=== PATIENT | male | born 1955 | race Caucasian/White ===

== ENCOUNTER 2017-09-02 21:48 | Emergency (ER) | payer OTHER ==
[~2017-09-02] VITALS: Ht 172.7 cm; Wt 63.9 kg
[~2017-09-02 21:48] MED LIST: AMLO-110 PO; ASPI81TA28 PO; LISI-461 PO; TIOTCAP INH
[2017-09-02 21:50] VITALS: Ht 172.7 cm; Wt 63.9 kg
[2017-09-02] MEDS ORDERED: SODIUM CHLORIDE 0.9% 1000ML 2,000 ML IV STA (22:02)
[2017-09-02] MEDS ORDERED: ALBUT/IPRATROP 3MG/0.5MG NEB 3 ML VIAL INH STA (22:02)
--- NOTE | 2017-09-02 22:02 | EMERGENCY ROOM VISIT NOTE ---
History Report prepared by Hilda: Benja Underwood Under the Supervision of: Dr. Cullen Grubbs M.D. First contact with patient: 21:55 Chief Complaint: SYNCOPE (NEAR SYNCOPE) Stated Complaint: LIGHTHEADED History of Present Illness The patient is a 61 year old male who presents to the Emergency Room with complaints of intermittent lightheadedness that began a couple of days ago. This has happened only once before in the past. He has a past medical history of COPD and smokes 1.5 packs of cigarettes every day. He also drinks 6-7 alcohol beverages every single day. He chose to come to the ER today because his lightheadedness had gotten worse this morning. His lightheadedness is only present when he is bending over and standing over. He denies any fevers, chills , cough, headache, chest pain, shortness of breath, nausea, vomiting, abdominal pain, diarrhea, or abnormal urinary symptoms. He has never withdrawn from alcohol. He takes a baby Aspirin daily but no other blood thinners. He takes Amlodipine and Lisinopril for his hypertension. Source of History: patient Onset: a couple of days ago Position: other (global) Symptom Intensity: moderate Quality: other (Lightheadedness) Timing: intermittent Modifying Factors (Worsening): other (bending over) Associated Symptoms: No fevers, No chills, No cough, No chest pain, No SOB, No nausea, No vomiting, No abdominal pain, No diarrhea, No urinary symptoms Review of Systems See HPI for pertinent positives and negatives. A total of ten systems were reviewed and were otherwise negative. Past Medical & Surgical Medical Problems: (1) COPD (chronic obstructive pulmonary disease) (2) HTN (hypertension) Family History Patient reports no known family medical history. Social History Smoking Status: Current Every Day Smoker Alcohol Use: heavy Drug Use: none Housing Status: lives with significant other Occupation Status: unemployed Current/Historical Medications Scheduled Amlodipine (Norvasc), 5 MG PO DAILY Aspirin (Aspirin Ec), 81 MG PO Q2D Lisinopril (Lisinopril), 10 MG PO DAILY Tiotropium [place] (Spiriva Handihaler), 1 CAP INH DAILY Allergies Coded Allergies: No Known Allergies (Unverified , 12/31/15) Physical Exam Vital Signs Date Time Temp Pulse Resp B/P (MAP) Pulse Ox O2 Delivery O2 Flow Rate FiO2 09/02/17 23:56 36.4 78 18 154/80 99 09/02/17 23:32 78 18 154/80 99 Room Air 09/02/17 22:34 74 09/02/17 21:50 36.4 89 18 153/98 97 Room Air Physical Exam GENERAL: Awake, alert, well-appearing, in no distress, smells strongly of smoke. HENT: Normocephalic, atraumatic. Oropharynx reveals dry cracked mucous membranes. EYES: Normal conjunctiva. Sclera non-icteric. NECK: Supple. No nuchal rigidity. FROM. No JVD. RESPIRATORY: Scattered rhonchi and wheezes throughout. CARDIAC: Regular rate, normal rhythm. Extremities warm and well perfused. Pulses equal. ABDOMEN: Soft, non-distended. No tenderness to palpation. No rebound or guarding. No masses. RECTAL: Deferred. MUSCULOSKELETAL: Chest examination reveals no tenderness. The back is symmetrical on inspection without obvious abnormality. There is no CVA tenderness to palpation. No joint edema. LOWER EXTREMITIES: Calves are equal size bilaterally and non-tender. No edema. No discoloration. NEURO: Normal sensorium. No sensory or motor deficits noted. SKIN: No rash or jaundice noted. Medical Decision & Procedures ER Provider Diagnostic Interpretation: Radiology results as stated below per my review and radiologist interpretation: CHEST ONE VIEW PORTABLE CLINICAL HISTORY: 61 years-old Male presenting with CHEST PAIN. TECHNIQUE: Portable upright AP view of the chest was obtained. COMPARISON: None. FINDINGS: Atherosclerosis of aortic arch. Cardiac silhouette normal in size. Right apical opacity possibly due to apical lordotic positioning. Lungs and pleural spaces clear. Osseous structures normal. Upper abdomen normal. IMPRESSION: 1. Apparent right apical opacity possibly due to apical lordotic positioning and overlapping vascular structures. No other evidence of acute cardiopulmonary disease. Electronically signed by: Maxi William M.D. 09/02/2017 11:01 PM Dictated Date/Time: 09/02/2017 11:00 PM Laboratory Results 09/02/17 22:20 Red Blood Count 4.68, Mean Corpuscular Volume 98.9, Mean Corpuscular Hemoglobin 35.0, Mean Corpuscular Hemoglobin Concent 35.4, Mean Platelet Volume 11.4, Neutrophils (%) (Auto) 72.0, Lymphocytes (%) (Auto) 20.0, Monocytes (%) (Auto) 6.9, Eosinophils (%) (Auto) 0.4, Basophils (%) (Auto) 0.4, Neutrophils # (Auto) 6.67, Lymphocytes # (Auto) 1.86, Monocytes # (Auto) 0.64, Eosinophils # (Auto) 0.04, Basophils # (Auto) 0.04 09/02/17 22:20 Test 09/02/17 22:20 09/02/17 23:29 White Blood Count 9.28 K/uL (4.8-10.8) Red Blood Count 4.68 M/uL (4.7-6.1) Hemoglobin 16.4 g/dL (14.0-18.0) Hematocrit 46.3 % (42-52) Mean Corpuscular Volume 98.9 fL (80-100) Mean Corpuscular Hemoglobin 35.0 pg (25-34) Mean Corpuscular Hemoglobin Concent 35.4 g/dl (32-36) Platelet Count 121 K/uL (130-400) Mean Platelet Volume 11.4 fL (7.4-10.4) Neutrophils (%) (Auto) 72.0 % Lymphocytes (%) (Auto) 20.0 % Monocytes (%) (Auto) 6.9 % Eosinophils (%) (Auto) 0.4 % Basophils (%) (Auto) 0.4 % Neutrophils # (Auto) 6.67 K/uL (1.4-6.5) Lymphocytes # (Auto) 1.86 K/uL (1.2-3.4) Monocytes # (Auto) 0.64 K/uL (0.11-0.59) Eosinophils # (Auto) 0.04 K/uL (0-0.5) Basophils # (Auto) 0.04 K/uL (0-0.2) RDW Standard Deviation 49.0 fL (36.4-46.3) RDW Coefficient of Variation 13.7 % (11.5-14.5) Immature Granulocyte % (Auto) 0.3 % Immature Granulocyte # (Auto) 0.03 K/uL (0.00-0.02) Anion Gap 6.0 mmol/L (3-11) Est Creatinine Clear Calc Drug Dose 78.1 ml/min Estimated GFR () 105.1 Estimated GFR (Non- 90.7 BUN/Creatinine Ratio 15.2 (10-20) Calcium Level 8.6 mg/dl (8.5-10.1) Phosphorus Level 2.6 mg/dl (2.5-4.9) Magnesium Level 2.1 mg/dl (1.8-2.4) Total Bilirubin 0.3 mg/dl (0.2-1) Direct Bilirubin mg/dl (0-0.2) Aspartate Amino Transf (AST/SGOT) 27 U/L (15-37) Alanine Aminotransferase (ALT/SGPT) 24 U/L (12-78) Alkaline Phosphatase 72 U/L (45-117) Troponin I < 0.015 ng/ml (0-0.045) Total Protein 7.4 gm/dl (6.4-8.2) Albumin 3.9 gm/dl (3.4-5.0) Lipase 125 U/L (73-393) Chemistry Specimen Hemolysis Urine Color YELLOW Urine Appearance CLEAR (CLEAR) Urine pH 7.0 (4.5-7.5) Urine Specific [place] 1.007 (1.000-1.030) Urine Protein NEG (NEG) Urine Glucose (UA) NEG (NEG) Urine Ketones NEG (NEG) Urine Occult Blood NEG (NEG) Urine Nitrite NEG (NEG) Urine Bilirubin NEG (NEG) Urine Urobilinogen NEG (NEG) Urine Leukocyte Esterase NEG (NEG) Laboratory results reviewed by me Medications Administered Medications (Trade) Dose Ordered Sig/[place] Route Start Time Stop Time Status Last Admin Dose Admin Sodium Chloride 2,000 ml @ 999 mls/hr Q2H1M STAT IV 09/02/17 22:02 09/03/17 00:02 DC 09/02/17 22:28 999 MLS/HR Albuterol/ Ipratropium (Duoneb) 3 ml NOW STAT INH 09/02/17 22:02 09/02/17 22:05 DC 09/02/17 22:28 3 ML ECG Indication: other (dizziness) Rhythm: normal sinus (69) Findings: no acute ischemic change, other (normal axis) ED Course 2154: The patient was evaluated in room B6. A complete history and physical exam was performed. 2345: I reevaluated the patient. Discussed results and discharge instructions: He verbalized understanding and agreement. The patient is ready for discharge. Medical Decision I reviewed the patient's past medical history, medications, and the nursing notes as described above. Differential diagnosis includes but is not limited to: COPD exacerbation, pneumonia, bronchitis, dehydration, electrolyte abnormalities, intoxication, alcohol withdrawal, or malnutrition. The patient is a 61-year-old gentleman with a past medical history of daily alcohol use drinking fortified beers daily as well as 1.5 pack per day smoker presents to emergency department with lightheadedness and ongoing for the past few days particularly when he bends down and stands back up quickly per hpi. On arrival the patient is no acute distress, afebrile with stable vital signs. He is neurologically intact including normal cerebellar function with finger-to- nose, alternating palms, [id number]. Ambulates without difficulty. EKG and CXR unremarkable Labs show a sodium of 135 but otherwise unremarkable. He was given 2 L IV fluids with good effect resolution of his symptoms, and given the patient's clinical dry exam symptoms most likely related to dehydration. The patient was counseled on his chronic alcohol use. Findings and plan for follow- up reviewed with patient. Patient agreeable and d/c'd per discharge instructions. Medication Reconcilliation Current Medication List: was personally reviewed by me Blood Pressure Screening Patient's blood pressure: Elevated blood pressure Blood pressure disposition: Referred to PCP Impression Primary Impression: Dizziness Additional Impression: Dehydration Scribe Attestation The scribe's documentation has been prepared under my direction and personally reviewed by me in its entirety. I confirm that the note above accurately reflects all work, treatment, procedures, and medical decision making performed by me. Departure Information Dispostion Home / Self-Care Referrals Carlito Stout D.O. (PCP) Forms HOME CARE DOCUMENTATION FORM, IMPORTANT VISIT INFORMATION Patient Instructions Dizziness Balance Probs Fainting, ED Dehydration, My [facility] Additional Instructions Please follow up with your primary care physician in the next 1-3 days for re- evaluation. Your symptoms are likely due to being mildly dehydrated as well as your chronic alcohol use. Otherwise, your exam, EKG, chest xray, and lab results did not show signs of an emergent condition at this time. You should considering stopping your alcohol use, seek help if you needed. Drink plenty of fluids to ensure hydration. Return to the emergency department for worsening symptoms as described in the accompanying instructions. Problem Qualifiers
[2017-09-02] MEDS ORDERED: SPRIN/30 INH (22:28)
[2017-09-02 22:41] LABS: BASO % 0.4 %; BASO ABS # 0.04 K/uL (0-0.2); COMPLETE YES; EOS % 0.4 %; HEMATOCRIT 46.3 % (42-52); IG% 0.3 %; LYMPH ABS # 1.86 K/uL (1.2-3.4); MEAN CELL VOLUME 98.9 fL (80-100); MEAN CORPUSCULAR HGB CONC 35.4 g/dl (32-36); MEAN PLATELET VOLUME 11.4 fL (7.4-10.4); MONO % 6.9 %; PLATELET COUNT 121 K/uL (130-400); RED BLOOD COUNT 4.68 M/uL (4.7-6.1); WHITE BLOOD COUNT 9.28 K/uL (4.8-10.8)
--- NOTE | 2017-09-02 23:03 | DIAGNOSTIC IMAGING REPORT ---
CHEST ONE VIEW PORTABLE CLINICAL HISTORY: 61 years-old Male presenting with CHEST PAIN. TECHNIQUE: Portable upright AP view of the chest was obtained. COMPARISON: None. FINDINGS: Atherosclerosis of aortic arch. Cardiac silhouette normal in size. Right apical opacity possibly due to apical lordotic positioning. Lungs and pleural spaces clear. Osseous structures normal. Upper abdomen normal. IMPRESSION: 1. Apparent right apical opacity possibly due to apical lordotic positioning and overlapping vascular structures. No other evidence of acute cardiopulmonary disease. Electronically signed by: Maxi William M.D. 09/02/2017 11:01 PM Dictated Date/Time: 09/02/2017 11:00 PM
[2017-09-02 23:13] LABS: ALKALINE PHOSPHATASE 72 U/L (45-117); ALT/SGPT 24 U/L (12-78); AST/SGOT 27 U/L (15-37); BLOOD UREA NITROGEN 14 mg/dl (7-18); BUN/CREATININE RATIO 15.2 (10-20); CALCIUM 8.6 mg/dl (8.5-10.1); CARBON DIOXIDE 26 mmol/L (21-32); CHLORIDE 103 mmol/L (98-107); CREATININE 0.92 mg/dl (0.60-1.40); GLUCOSE 162 mg/dl (70-99); MAGNESIUM 2.1 mg/dl (1.8-2.4); PHOSPHORUS 2.6 mg/dl (2.5-4.9); POTASSIUM 3.8 mmol/L (3.5-5.1); SODIUM 135 mmol/L (136-145)
[2017-09-02 23:41] LABS: URINE APPEARANCE CLEAR (CLEAR); URINE BILIRUBIN NEG (NEG); URINE COLOR YELLOW; URINE NITRITE NEG (NEG); URINE SPECIFIC GRAVITY 1.007 (1.000-1.030); UROBILINOGEN NEG (NEG); ZZUR CULT IF INDIC CLEAN CATCH NO
[2017-09-02 23:45] LABS: MANUAL MICROSCOPIC REQUIRED? NO; REVIEW REQ? NO
[2017-09-02 23:56] VITALS: BP 154/80; PULSE 78; TEMP 36.4; O2SAT 99
== END 2017-09-02 23:56 | disposition home or self-care (01) ==
LOC: C.EDB 21:49
DX: R42 Dizziness and giddiness (principal); E86.0 Dehydration; J44.9 Chronic obstructive pulmonary disease, unspecified; F17.210 Nicotine dependence, cigarettes, uncomplicated; F10.10 Alcohol abuse, uncomplicated; I10 Essential (primary) hypertension; Z79.82 Long term (current) use of aspirin